=== PATIENT | female | born 1960 | race Caucasian/White ===

== ENCOUNTER → 2016-07-19 | Outpatient (CLI) | payer MEDICAID ==
[~2016-07-19] MED LIST: ASPIRIN 81MG TA81 MG PO; AUGMENTIN 875-1 EACH PO; CARAFATE1 GM/10 ML PO; CLEOCIN HCL300 MG PO; D-10001 TAB PO; FLUOXETINE20 MG PO; FOLBIC RF1 TAB PO; IRON 100 PLUS1 TAB PO; LEVOTHYROXINE0.1 MG PO; LORTAB 5/3251 TAB PO; NAPROXEN SOD.550 MG PO; NATURAL VITAM1000 MG PO; NATURAL ZINC50 MG PO; OMEPRAZOLE MAGN20 MG PO; PROPRANOLOL HCL40 MG PO; PROTONIX 40MG T40 MG PO; TOPIRAMATE 25MG25 MG PO; TORADOL10 M2 PO
--- NOTE | 2016-07-22 08:25 | RADIOLOGY REPORT PS360 ---
MRI-L-SPINE W/O, MRI-3D RENDERING/MYELOGRAM ORDERING PHYSICIAN : Pratibha Julian APRN PATIENT AGE: 55 years GENDER: Female INDICATION: LOW BACK PAIN, RADIATING BACK PAIN Mid and low back pain for several months. Pain worse past few weeks. Right hip right leg pain. TECHNIQUE: Sagittal STIR, T1, T2, axial T1 and T2. On 1.5T Siemens wide bore MRI. 3-D MR myelogram image set obtained & performed on MRI workstation. Additional sagittal thin section T2 weighted dataset obtained from this latter acquisition as well (---76 CPT) COMPARISON: Plain films lumbar spine 07/19/2016 FINDINGS Levoscoliosis. Lumbar spine. Approximate 20 degrees, with convexity to the left most pronounced at L3/4 level Marked degenerative disc space narrowing L2/L3/4 most evident to the right reflecting the levoscoliosis Vertebral bodies intact no compression fracture or lesion. L5/S1. Mild up to 4 mm grade 1 anterolisthesis of L5 on S1. Appears due to degenerative facet changes as no discrete pars defect identified. There is prominent facet hypertrophy/arthropathy bilaterally at this level. These features yield pronounced left foraminal encroachment to the left; & mild foraminal encroachment on right L4/5 disc height fairly well-maintained. Mild grade 1 degenerative listhesis of L4 on 5. Diffuse disc bulge with additional disc protrusion just to right of midline indenting the thecal sac. This along with exuberant very prominent facet hypertrophy and arthropathy (right greater than left)with minimal fluid at facet joints. Overall features yield a fairly severe spinal stenosis at this level. . Also fairly pronounced bilateral foraminal encroachment and stenosis also noted due to these features L3/4. Degenerative disc space narrowing most pronounced to right, reflects the moderate levoscoliosis. Moderate eccentric disc bulge to the right-indents thecal sac to right. The levoscoliosis decreases the height of the right foramen. This along with rightward disc bulge along & facet hypertrophy yields pronounced right foraminal encroachment. Only mild left foraminal encroachment. Moderate/severe central canal stenosis due to combination of features L2/3. Diffuse disc space narrowing most pronounced to the right levoscoliosis. Disc bulge slightly more evident to the right indenting right aspect of thecal sac with the left. Moderate central canal stenosis.. Mild facet hypertrophy. . Moderate right foraminal encroachment mild left foraminal encroachment L1/2. Disc intact as is T12/L1. Intact T11/12 disc intact T11. Slight wedge configuration reflect old superior endplate compression fracture. 20-25 % loss of height This does not appear to be acute fracture by MR. It may have occurred over the past year as there is some minimal signal beneath the superior endplate, but but this is subtle signal suggest healing of old fracture.. Prominent Schmorl's node defect suggesting protrusion of disc downward through this superior endplate endplate likely having occurred in the past as well.. T12 vertebra. Benign hemangioma 15 mm x 12 mm. 3-D MR myelogram nicely demonstrates the spinal stenosis L4/5, L3/4 and to lesser L2/3. It also demonstrates the levoscoliosis. Also facet arthropathy at L4/5 with fluid at facet joints is particularly evident --- IMPRESSION: ----- 1. Levoscoliosis, multilevel degenerative disc changes, with facet hypertrophy -yields multilevel Spinal Stenosis and multilevel bilateral foraminal encroachment: L4/5: Fairly severe spinal stenosis most evident this level. Also prominent Bilateral foraminal stenosis. Diffuse disc bulge with additional modest focal disc protrusion just right of midline additionally indenting thecal sac. L3/4 moderate-severe central canal stenosis Diffuse disc bulge, +prominent facet hypertrophy, levoscoliosis .-. Features together yield prominent Right foraminal encroachment & moderate/severe central canal stenosis L2/3. Moderate central canal stenosis. Disc bulge most evident the right. Facet hypertrophy. - Regarding right leg pain: . In addition to spinal stenosis, there is the significant foraminal encroachment is most evident the right at L4/5 L3/4 & L2/3. & Also mild additional focal disc protrusion at right of midline at L4/5 (axial slice 37 &sagittal slice 10) may contribute to right symptoms.
== END ==
LOC: RAD 09:43
DX: M54.5 Low back pain (principal); M54.9 Dorsalgia, unspecified

== ENCOUNTER → 2016-10-28 | Outpatient (CLI) | payer MEDICAID ==
--- NOTE | 2016-11-03 15:07 | RADIOLOGY REPORT PS360 ---
MRI-LOW EXT ANY JOINT W/O-LT MRI LEFT KNEE Ordering Physician: KIKI BERGMAN MD Patient Age: 55 years: Female HISTORY: PAIN IN LEFT KNEElong-standing knee pain. Worse over the past 3 months. TECHNIQUE: Multiplanar multisequence imaging on 1.5TMR I. FINDINGS PRONOUNCED OSTEOARTHRITIC changes, degenerative arthritic changes generous tricompartmental osteophytes. most pronounced about lateral margin.Lateral compartment.. Generous tricompartmental marginal osteophytes LATERAL MENISCAL TEAR. Fairly extensive tear, mid body extending to the anterior horn. Irregular appearance of the remaining lateral meniscus throughout these regions.. Cannot totally exclude displaced meniscal fragment. Lateral Compartment osteoarthritis : Diffuse chondral scuffing & thinning moderately pronounced also on both sides of this lateral compartment joint space... Moderate reactive bone changes both sides of the joint with subchondral cystic irregularities particularly evident at the lateral margin of the lateral tibial plateau and lateral femoral. Actually appears to be slightly flattened appearance at the lateral margin lateral femoral condyle sagittal image [id number] with subchondral cystic changes beneath this area. ACL. Not evident. Appears to be torn. There is a vertically oriented bone cystic defect seen just behind the anterior tibial spine. Has this patient had a ACL repair.? In Remote past. If not then this may reflects a slightly unusual appearing 2 cm X up to 6.5 mm mm AP vertically oriented geode/or subchondral/degenerative cyst just posterior to the anterior tibial spine MEDIAL COMPARTMENT osteoarthritis:. Diffuse chondral thinning & scuffing most evident most evident posterior medial margin aspect of the medial tibial plateau. Bowel with also similar findings at the medial margin medial femoral condyle Slight flattened appearance at the medial margin The numerous subchondral cystic changes beneath the medial margin of the medial tibial plateau. Small areas medial margin of femoral condyle. Marginal osteophytes. . Medial Meniscal:. Overall medial meniscus is better maintained but does have a slightly truncated appearance at the posterior meniscal root region which may reflect small free margin tear... Can be merely reflect the transitional character to this more posterior segment. Prominent Joint Effusion most evident suprapatella bursa. Associated Otero's cyst moderate size a roughly 4 cm length. Patellofemoral joint.: Degenerative changes Chondral loss. Numerous small subchondral cystic changes and foci most evident at the lateral facet of patella, superiorly. Tricompartmental marginal osteophytes. Prominent degenerative arthritic changes tricompartmental IMPRESSION...... 1. Prominent osteoarthritis.. Lateral compartment arthritis> medial compartment arthritis --Lateral compartment narrowing with prominent chondral loss & scuffing. Generous reactive bone changes and Subchondral cystic changes to at lateral margin. --.Osteoarthritis medial compartment most evident at its medial margin. 2. Lateral Meniscal Tear most pronounced- most evident involving body of lateral meniscus, & with there likely extending towards anterior horn more so than posterior horn. 3. Medial meniscus. Slight truncation at posterior horn near the meniscal root. Possible minor free margin tear posterior horn near the posterior meniscal root. 4.. ACL not visualized and likely torn. 5. Tunnel like area behind tibial spine- question ACL repair versus prominent vertically oriented prominent geode or/subchondral cyst 6.. Large joint effusion
== END ==
LOC: RAD 14:22
DX: M25.562 Pain in left knee (principal)

== ENCOUNTER 2016-12-06 09:10 | Day surgery (SDC) | payer MEDICAID ==
[~2016-12-06] VITALS: Ht 170.2 cm; Wt 119.3 kg
--- NOTE | 2016-12-06 14:33 | Anesthesia Record ---
Anesthesia Record Part I Total IV fluids: 2200 EBL (ml): 0 Urine Output: 0 B/P: 144/89 % SaO2: 95 Pulse: 66 Resps: 12 Temp: 98.6 Patient is: Drowsy, Stable Stable to PACU at: 1430 at 1432
--- NOTE | 2016-12-06 14:33 | Anesthesia Record ---
Anesthesia Record Part II Discharge time: 1500 Destination: Same day surgery PACU nurse assessment review? Yes Patient is: Awake, Stable Anesthesia complications? No at 1434
[2016-12-06 17:08] VITALS: BP 145/81
--- NOTE | 2016-12-06 22:57 | RADIOLOGY REPORT PS360 ---
KNEE-LIMITED 2 VIEWS-LT Ordering Physician: KIKI BERGMAN MD Patient Age: 56 years: Female HISTORY: POST-OP left knee pain TECHNIQUE: Portable AP and l crosstable lateral FINDINGS There appears to beenarthroscopic injection of subchondral cyst with radiopaque material. This is seen at the throughout the lateral margin of the lateral tibial plateau . There is narrowing of the medial compartment more so than lateral compartment on this nonweightbearing portable study. Tricompartmental marginal osteophytes. Postsurgical changes of air within the anterior joint space below the patella on this lateral crosstable film.. Joint effusion evident. Prominent marginal osteophytes from patella. IMPRESSION: Appears to be injectionof radiopaque material into of subchondral cyst beneath the lateral margin of the lateral tibial plateau. Postprocedure changes evident. Air and fluid at the joint. Underlying. Moderately advanced arthritic changes at the knee as have been previously discussed
--- NOTE | 2016-12-07 23:46 | RADIOLOGY REPORT PS360 ---
KNEE-LIMITED 2 VIEWS-LT Ordering Physician: KIKI BERGMAN MD Patient Age: 56 years: Female HISTORY: KNEE ARTHROSCOPY WITH SUBCHONDRALPLASTYknee pain. Degenerative Arthritis TECHNIQUE: AP and lateral views of the left knee from image intensifier. COMPARISON is made to MR I knee 10/28/2016 FINDINGS Osteoarthritis changes again evident throughout knee. Narrowing at the medial compartment greater lateral compartment. Question there may have been likely procedure with injection of radial opaque material into the generous subchondral degenerative cyst beneath the lateral margin of the lateral tibial plateau on this study.. Clinical correlation required. . Lateral view also shows air behind patella from the the arthroscopy procedure.
--- NOTE | 2016-12-09 17:00 | Operative Note ---
Procedure/Operative Record Date of Procedure: 12/06/16 Referring physician: Dr. Bowden Pre-op diagnosis: 1. Primary osteoarthritis, Left knee 2. Primary osteoarthritis, right knee 3. Degenerative meniscal tears, left knee 4. Stress fracture of lateral condyle of left femur 5. Stress fracture of lateral tibial plateau, left knee Post-op diagnosis: 1. Primary osteoarthritis, Left knee 2. Primary osteoarthritis, right knee 3. Degenerative meniscal tears, left knee 4. Stress fracture of lateral tibial plateau, left knee 5. Intra-articular loose bodies, left knee Procedure performed: 1. Examination under anesthesia, left knee. 2. Arthroscopic partial medial meniscectomy, left knee 3. Arthroscopic partial lateral meniscectomy, left knee 4. Chondroplasty, all 3 compartments, left knee 5. Removal of loose bodies, left knee 6. Sub-chondroplasty, left knee 7. Intra-articular injection of steroid and local anesthetic, right knee Surgeon: PACHECO DIAZ,KIKI ANTONIO Manager Support Services(s): Dr. Robison Anesthesia: General Indications: Patient is a 56-year-old female with bilateral knee arthritis. She failed to respond satisfactorily to conservative management in her left knee whereas she is still responding well to conservative management on the RIGHT side. The MRI scan of her LEFT knee is showing chronic bone marrow lesions (reactive bony edema) indicative of stress/microfractures over both medial and lateral tibial plateau as well as to a lesser extent in both the femoral condyles. She also has degenerative changes in all 3 compartments of the knee and degenerative medial and lateral meniscal tears. The surgical option management which includes LEFT knee arthroscopy, resection of the torn menisci, debridement/chondroplasty as needed and subchondroplasty procedure for both the femoral condyles and tibial plateau is indicated to relieve the pain and improve function of her knee. With regards to her right knee, she is responding fairly well to intra-articular steroids which last for a few months. Has the pain has come back she requested for a repeat injection to the right knee. Findings: Examination of the LEFT knee under anesthesia, showed a grade 2 positive anterior drawer's test with a firm endpoint. Difficult to elicit Arsh's test given the shape and size of her leg. Pivot shift test is negative. Operative findings showed diffuse grade 3-4 degenerative changes over the all 3 compartments with more severe changes noted over the lateral compartment. There are multiple osteochondral loose bodies of varying sizes with the 2 largest one noted in the suprapatellar pouch and the lateral gutter. There was extensive degenerative tearing involving both the medial and lateral menisci. Osteophyte formation was noted over all 3 compartments. The anterior cruciate ligament was partially torn with only a thin strand intact. Correlating the MRI findings with the arthroscopic findings we have decided to perform sub-chondroplasty of the lateral tibial plateau only. The other bone marrow lesions noted on the MRI scan work too shallow and superficial and were corresponding to areas of the joint with complete loss of cartilage. Moderate synovitis was noted in the knee. Description of procedure: On the day of the procedure the patient was met in the preoperative area and positively identified. A physical examination was performed and documented. The limb was marked. I again discussed the diagnosis, natural history and management options including both nonsurgical and surgical. I discussed the proposed surgical procedure, risks and benefits and alternatives in detail. The complications discussed include but are not limited to infection, injury to nerves and blood vessels, injury to the ligaments and tendons, knee stiffness, arthrofibrosis, incomplete relief, incomplete functional recovery, DVT, PE, CRPS , complications related to anesthesia including heart attack, stroke and even . I have also discussed about the likely need for further surgery in future. I told her that there were no guarantees with surgery; she could be no better or even worse. We also discussed the postoperative recovery and rehabilitation protocol. I believe the patient to be well informed with regard to the proposed surgery. I told her that it could take few months for full recovery of the knee after surgery. She expressed a full understanding and wished to proceed with the planned surgery. A physical examination was performed and documented. The consent form was reviewed and signed. Patient was brought to the operating room and placed supine on the operating table. All the bony prominences were appropriately padded. A general anesthesia was administered by the anesthesia team. A well-padded tourniquet cuff was placed over the LEFT upper thigh. Examination of the LEFT knee under anesthesia was performed. A small amount of knee effusion was noted. Knee range of motion was 5-130 degrees of flexion. The knee joint showed a grade 2 positive anterior drawer's test with a firm endpoint. Difficult to elicit Arsh's test given the shape and size of her leg. Pivot shift test is negative. The LEFT knee was then prepped and draped in the usual sterile fashion. A preprocedure timeout was performed as per protocol. Administration of prophylactic IV antibiotics was confirmed with the anesthetic team. The arthroscopic portals were marked on the skin. The limb was exsanguinated with Esmarch bandage and the tourniquet was inflated to 350 mmHg- see the nursing notes for tourniquet time. I then made an anterolateral arthroscopic portal and introduced the arthroscope and performed the arthroscopic knee examination. I then created an anteromedial portal under direct vision. Findings included diffuse grade 3-4 degenerative changes over the all 3 compartments with more severe changes noted over the lateral compartment. There are multiple osteochondral loose bodies of varying sizes with the 2 largest one noted in the suprapatellar pouch and the lateral gutter. There was extensive degenerative tearing involving both the medial and lateral menisci. Osteophyte formation was noted over all 3 compartments. The anterior cruciate ligament was partially torn with only a thin strand intact. Correlating the MRI findings with the arthroscopic findings we have decided to perform sub- chondroplasty of the lateral tibial plateau only. The other bone marrow lesions noted on the MRI scan work too shallow and superficial and were corresponding to areas of the joint with complete loss of cartilage. Moderate synovitis was noted in the knee. After performing a thorough arthroscopic examination, I proceeded to perform partial medial and partial lateral meniscectomy, chondroplasty of all 3 compartments and removal of loose bodies. Using the arthroscopic instruments and shaver, I performed the partial medial meniscectomy and partial lateral meniscectomy to a stable margin. Then performed a chondroplasty of all 3 compartments using curette and arthroscopic shaver resecting the loose chondral flaps to a stable edge. I then removed all the loose bodies. The majority of the anterior cruciate ligament was torn with only thin strand of intact fibers left. The torn part of the ACL was resected with arthroscopic shaver. We then proceeded to perform sub-chondroplasty of the lateral tibial plateau. Using the C-arm control to guidance, I introduced the 3 mm side delivery AccuPort cannula into the lateral tibial plateau. After confirming satisfactory position, I injected 4 cc of premixed (on the back table with saline) AccuFill BSM under fluoroscopic guidance. As the positioning of the needle was somewhat to inferior, we placed another needle about the first needle and injected 3 more cc of premixed AccuFill BSM under fluoroscopic guidance. After confirming satisfactory injection of the AccuFill BSM we left the needles in place for about 8 minutes for this to set. After this the needles were removed and a repeat knee arthroscopy was performed. We had noticed a little bit of extrusion of the AccuFill into the knee which was removed with the shaver. The knee joint was thoroughly washed out at the end of the procedure. The instruments were removed, the knee joint was emptied of the irrigating fluid and the arthroscopic sheath was removed. Fluoroscopic images were obtained and stored for future reference. The portals were sutured with 4-0 Ethilon [id number] sutures. I then injected 30 mL of plain Marcaine around the portals/soft tissue as well as into the knee joint for postoperative pain relief. Sterile dressings and the pressure bandage were applied. The tourniquet cuff was removed from the thigh. I then performed steroid injection to the right knee. The skin was prepped in a sterile fashion with multiple chlorhexidine sticks. A combination of 40 mg of Kenalog and 9 mL of 0.5 percent Marcaine injected intra-articularly into the right knee joint with a 25-gauge needle under aseptic precautions through an anterolateral approach. Sterile dressing was applied. The patient was then reversed from the anesthetic and transferred onto the [facility]. She was transported to the postoperative recovery area in stable condition. She tolerated the procedure well and there were no immediate complications. The swab needle and instruments counts were correct according to scrub team at the end of the procedure. Following recovery from the anesthetic the patient was discharged home with appropriate written instructions. EBL (ml): 10 Implant: ZimmerAccuFill BSM was used for sub-chondroplasty. Industry provider relations representative:Derrick Gamez from [employer] Complications: None Specimens: None at [id number]
== END 2016-12-06 16:50 | disposition home or self-care (01) ==
LOC: SDC 09:10
PROVIDERS: Orthopaedic Surgery
PROC: 0SBD4ZZ Excision of Left Knee Joint, Percutaneous Endoscopic Approach (ICD-10-PCS; 2016-12-06)
PROC: 3E0U33Z Introduction of Anti-inflammatory into Joints, Percutaneous Approach (ICD-10-PCS; 2016-12-06)
PROC: 0SBD4ZZ Excision of Left Knee Joint, Percutaneous Endoscopic Approach (ICD-10-PCS; principal; 2016-12-06 10:45)
DX: M17.0 Bilateral primary osteoarthritis of knee (principal); M23.201 Derangement of unspecified lateral meniscus due to old tear or injury, left knee; M23.204 Derangement of unspecified medial meniscus due to old tear or injury, left knee; M84.352A Stress fracture, left femur, initial encounter for fracture; M84.362A Stress fracture, left tibia, initial encounter for fracture; M23.42 Loose body in knee, left knee
CPT/HCPCS: C1713; J2405

== ENCOUNTER → 2017-04-14 | Outpatient (CLI) | payer MEDICAID ==
--- NOTE | 2017-04-15 08:58 | RADIOLOGY REPORT PS360 ---
L-SPINE BEND 2-3 VIEWS ONLY CLINICAL INDICATION: LOW BACK PAIN,CHRONIC PAIN ORDERING PHYSICIAN: Pratibha Julian APRN PATIENT AGE: 56 years COMPARISON: 07/09/2016 FINDINGS: Flexion and extension views are obtained of the lumbar spine. Severe degenerative disc disease is present from L2 to L5. There is mild anterolisthesis of L4 on L5 of approximately 8 mm which does not change in flexion or extension. No acute fracture or dislocation evident. There is mild chronic wedging of T11. IMPRESSION: Degenerative disc disease. Mild anterolisthesis of L4 on L5 which does not change with flexion or extension.
== END ==
LOC: RAD 15:04
DX: M54.5 Low back pain (principal); G89.29 Other chronic pain